=== PATIENT | female | born 1970 | race Caucasian/White ===

== ENCOUNTER 2018-01-11 15:18 | Observation (INO) | payer BC ==
[~2018-01-11] VITALS: Ht 165.1 cm; Wt 131.8 kg
--- NOTE | ~2018-01-11 | HP ---
PATIENT: KARLOS NOLASCO MEDICAL RECORD: [id number] ACCOUNT: [id number] LOCATION:[facility].E10- : 70 ADMISSION DATE: 01/11/18 HISTORY AND PHYSICAL EXAMINATION DATE OF ADMISSION: 01/11/2018 CHIEF COMPLAINT: Extreme dizziness. HISTORY OF PRESENT ILLNESS: The patient is a 47-year-old obese female, who presents complaining of extreme dizziness. The patient states that over the past 4-5 days, she has had increasing weakness. She has had a history of having some dependent edema. She had recently had her diuretics increased. The patient presents being tachycardic as well as hypotensive. It is felt the patient warrants admission. PAST MEDICAL HISTORY: Significant that she has had epilepsy. She has had a cholecystectomy. She has had morbid obesity, obstructive sleep apnea, anxiety. FAMILY HISTORY: Mother was killed in a MVA at 47 years of age. Sister committed suicide. Father at 67 of heart disease. MEDICATIONS: Include acetaminophen with codeine one p.o. q.6 hours p.r.n. pain, aspirin 81 mg once a day, Coenzyme Q10 100 mcg once a day, cyclobenzaprine 10 mg t.i.d., Divalproex 500 mg tablet, Lasix 40 mg daily, Ativan 0.5 p.r.n. q.4 hours, anxiety, losartan 50 mg once a day, recently placed on metolazone 2.5 mg once a day, Topamax 50 mg daily, KCl 20 mEq twice daily, venlafaxine ER 150 mg daily, vitamin C 500 mg once a day. ALLERGIES: THE PATIENT IS ALLERGIC TO BACTRIM WELL DOXYCYCLINE. HABITS: None. REVIEW OF SYSTEMS: GENERAL: She denies any headaches, seizure or syncope. She denies change in visual or auditory acuity. PULMONARY: She denies any shortness of breath. CARDIOVASCULAR: She had no chest pain, palpitation, PND, orthopnea. GASTROINTESTINAL: No chronic nausea, vomiting, melena or hematochezia. GENITOURINARY: No urgency, frequency, or dysuria. PHYSICAL EXAMINATION: VITAL SIGNS: In the Emergency Room, this patient's temperature was 97, her pulse 126, her respirations are 18, her blood pressure was 104/72, her pulse 97. HEENT: Head is normocephalic. No lesions. Ears: TMs clear. Eyes: Pupils equal, round, reactive to light. Her extraocular movements are intact. Her nasal cavity, oral cavity, and oropharynx clear. NECK: Supple. There is no adenopathy. HEART: Had a regular rate. LUNGS: Clear. ABDOMEN: Soft, bowel sounds are positive. EXTREMITIES: Lower extremities had no edema. LABORATORY DATA: White count is elevated at 15.9, hemoglobin 17.2, hematocrit 50.4, platelets are 267. She had a sodium 138, potassium 3, chloride 96, CO2 is HISTORY AND PHYSICAL [id number] KARLOS NOLASCO M 29.2, BUN 25, creatinine 1.9, glucose is 247, calcium is 10.2, alkaline phosphatase was elevated at 160. ProBNP was 143. Chest x-ray showed no cardiomegaly, no active infiltrates. The patient had an EKG showing sinus tachycardia, rate is 106. Cardiac enzymes unremarkable. ASSESSMENT: 1. Morbid obesity. 2. Acute renal insufficiency secondary to excessive diuresis. 3. Dependent edema. 4. Hypertension. 5. History of epilepsy. 6. Mild hepatocellular dysfunction. PLAN: The patient will be admitted. Her diuretics will be held. She will be given gentle IV hydration. Continue to evaluate. TRANSINT:[id number] Voice Confirmation ID: [id number] DOCUMENT ID: [id number] NORAH ALVARADO MD at 1725 CC: [id number] DICTATION DATE: 01/12/18 0736 NEW ACCOUNT INTERVIEWER: 01/12/18 0827 DIS IN 01/12/18 [id number] [place] [address]
--- NOTE | ~2018-01-11 | DS ---
PATIENT:KARLOS NOLASCO :70 MEDICAL RECORD: [id number] DISCHARGE SUMMARY ADMISSION DATE: 01/11/18 DISCHARGE DATE: 01/12/18 DATE OF ADMISSION: 01/11/2018. DATE OF DISCHARGE: 01/12/2018. CONDITION ON DISCHARGE: Improved. ADMITTING DIAGNOSES: Morbid obesity, acute renal insufficiency, dependent edema, hypertension, history of epilepsy, mild hepatocellular dysfunction. DISCHARGE DIAGNOSES: Weakness, acute renal failure, hyperkalemia, dehydration, morbid obesity, obstructive sleep apnea, hypertension, and tachycardia. HOSPITAL COURSE: This patient is a 47-year-old female who had presented to the Emergency Room complaining of extreme dizziness. She states over the past 4-5 days, she has had increasing weakness. She had had a history of having some dependent edema recently. She had had her diuretics increased. The patient presented with tachycardia as well as hypotension, felt the patient warranted admission. PHYSICAL EXAMINATION: VITAL SIGNS: In the Emergency Room, her temperature was 97, pulse was 126, respiration 18, blood pressure 104/72. HEENT: Unremarkable. NECK: Supple. There was no adenopathy. HEART: Had regular. LUNGS: Clear. LABORATORY DATA: White count was elevated at 15.9, hemoglobin 17.2, hematocrit 50.4, and platelets were 267. Sodium 138, potassium of 3, chloride was 97, CO2 was 29, BUN was 25, creatinine was 1.9, blood sugar was 247, alkaline phosphatase was elevated at 160. Chest x-ray showed no cardiomegaly, no active infiltrates. EKG showed sinus tachycardia, rate of 160. The patient was admitted. Her diuretics were held. She was given gentle IV hydration. The following day, her white count was down to 7.2, hemoglobin 14.3, hematocrit was 43, her platelets were 260. Sodium was 140, potassium 3.2, chloride 102, CO2 was 28.1, BUN was 28, creatinine was down to 1.1, blood sugar was 149. It was felt that the patient was stable and could be discharged home. DISCHARGE INSTRUCTIONS: The patient was to follow up with Dr. Pack in approximately 1 week. MEDICATIONS: Would be Keppra 1000 mg p.o. b.i.d., Lucero 60 mg once a day, Pepcid 20 mg p.o. every day, aspirin 81 mg once a day, vitamin C 1000 mg once a day, Bactroban ointment application b.i.d., KCl 40 mEq times 1. Her activities were ad kyler. She will also be on Effexor 150 mg daily, Topamax 200 mg p.o. b.i.d., 1 multivitamin a day. TRANSINT:[id number] Voice Confirmation ID: [id number] DOCUMENT ID: [id number] DISCHARGE SUMMARY REPORT [id number] KARLOS NOLASCO JAMES MD at 1414 CC: [id number] DICTATION DATE: 02/08/18 1352 GIS SOFTWARE DEVELOPER: 02/09/18 1051 DIS IN 01/12/18 [id number] [place] [address]
[~2018-01-11 15:18] MED LIST: ALLERGY INJ; ASPIRIN EC81 MG; ATIVAN0.5 MG; BACTROBAN 22 GM22 GM; CLARITIN 10 MG10 MG PO; CRANBERRY CONC OR; EFFEXOR XR150 MG PO; KEPPRA1000 MG PO; KLOR-CON M2020 MEQ PO; MAGNESIUM CITRATE OR; MELATONIN 3 MG1 TAB; MULTI-DAY VITAM1 TAB PO; NORCO 10/325 TA1 TA1 PO; PEPCID20 MG PO; TOPAMAX200 MG PO; VITAMIN C1000 MG PO
[2018-01-11 15:47] VITALS: Ht 165.1 cm; Wt 131.8 kg
[2018-01-11] MEDS ORDERED: FUROSEMIDE40 MG PO (15:50)
[2018-01-11 16:10] LABS: BASOPHILS 0.1 % (0-2); EOSINOPHILS 0.8 % (0-7); HEMATOCRIT 50.4 % (36.0-48.0); HEMOGLOBIN 17.2 g/dL (12-16); IMMATURE GRANULOCYTES 0.9 % (0-5); LYMPHOCYTES 24.3 % (15-50); MCH 31.7 pg (26.0-34.0); MCHC 34.1 g/dL (31.0-37.0); MCV 92.8 fL (80.0-100.0); MONOCYTES 10.4 % (2-11); NEUTROPHILS 63.5 % (40-80); PLATELET COUNT 267 10x3/uL (130-400); RBC 5.43 10x6/uL (4.00-5.40); RDW 14.5 % (11.5-14.5); WBC 15.9 10x3/uL (4.8-10.8)
[2018-01-11 16:27] LABS: ALBUMIN 3.8 g/dL (3.4-5.0); ANION GAP 15.8 mmol/L (8-16); BILIRUBIN - TOTAL 0.46 mg/dL (0.2-1.3); CALCIUM 10.2 mg/dL (8.5-10.1); CARBON DIOXIDE 29.2 mmol/L (21.0-32.0); CREATININE - SERUM 1.9 mg/dL (0.6-1.3); PROTEIN - SERUM 8.4 g/dL (6.4-8.2)
[2018-01-11 19:30] LABS: CKMB 0.6 U/L (0.0-3.6); CREATINE KINASE 46 UL (21-215); TROPONIN-I 0.019 ng/mL (0.000-0.060)
[2018-01-11 19:52] LABS: APPEARANCE HAZY (CLEAR); BACTERIA FEW /hpf (NONE SEEN); BILIRUBIN NEGATIVE (NEGATIVE); COLOR YELLOW (YELLOW); EPITHELIAL CELLS 0-5 /hpf (0-5); GLUCOSE NEGATIVE (NEGATIVE); KETONE NEGATIVE (NEGATIVE); NITRITE NEGATIVE (NEGATIVE); PROTEIN TRACE mg/dL (NEGATIVE); SPECIFIC GRAVITY 1.025 (1.005-1.020); UROBILINOGEN NORMAL (NORMAL); WHITE CELLS - URINE 0-5 /hpf (0-5)
[2018-01-11 19:53] LABS: AMORPHOUS SEDIMENT <1+ /lpf (NONE SEEN); HYALINE CAST RARE /lpf (NONE SEEN)
[2018-01-11 20:26] VITALS: BP 140/83
[2018-01-11 21:01] VITALS: BP 124/72
[2018-01-11 22:01] VITALS: BP 115/59
[2018-01-11 23:01] VITALS: BP 100/47
[2018-01-12] VITALS (8 sets, daily range): BP systolic 87–113; BP diastolic 47–55
[2018-01-12 04:31] LABS: BASOPHILS 0.1 % (0-2); HEMOGLOBIN 14.3 g/dL (12-16); IMMATURE GRANULOCYTES 0.4 % (0-5); MCH 30.8 pg (26.0-34.0); MCHC 33.3 g/dL (31.0-37.0); MCV 92.5 fL (80.0-100.0); MEAN PLATELET VOLUME 9.7 fL (7.4-10.4); MONOCYTES 8.6 % (2-11); NEUTROPHILS 47.9 % (40-80); RBC 4.65 10x6/uL (4.00-5.40); RDW 14.5 % (11.5-14.5)
[2018-01-12 04:36] LABS: WBC 7.2 10x3/uL (4.8-10.8)
[2018-01-12 04:37] LABS: PLATELET COUNT 260 10x3/uL (130-400)
[2018-01-12 04:42] LABS: ANION GAP 13.1 mmol/L (8-16); CALCIUM 8.9 mg/dL (8.5-10.1); CARBON DIOXIDE 28.1 mmol/L (21.0-32.0); MAGNESIUM - SERUM 2.2 mg/dL (1.8-2.4); POTASSIUM - SERUM 3.2 mmol/L (3.5-5.1)
[2018-01-12 04:44] LABS: CREATININE - SERUM 1.1 mg/dL (0.6-1.3)
== END 2018-01-12 09:10 | disposition home or self-care (01) ==
LOC: D.ER 15:18 → D.EDHOLD 21:02 → OBSVTIME 21:02 → D.EDHOLD 01-12 09:10
PROVIDERS: Family Medicine
DX: N17.9 Acute kidney failure, unspecified (principal); E87.6 Hypokalemia; E86.0 Dehydration; E66.01 Morbid (severe) obesity due to excess calories; F41.8 Other specified anxiety disorders; G47.33 Obstructive sleep apnea (adult) (pediatric); I10 Essential (primary) hypertension; K76.89 Other specified diseases of liver; R00.0 Tachycardia, unspecified; G40.409 Other generalized epilepsy and epileptic syndromes, not intractable, without status epilepticus

== ENCOUNTER → 2018-03-12 10:10 | Outpatient (CLI) | payer BC ==
[2018-01-11 15:47] VITALS: BMI 48.3
[~2018-03-12 10:10] MED LIST changes: +FUROSEMIDE40 MG PO
== END | disposition home or self-care (01) ==
LOC: D.US 10:10
DX: I10 Essential (primary) hypertension (principal); E87.6 Hypokalemia; R56.9 Unspecified convulsions; D64.9 Anemia, unspecified; Z68.43 Body mass index [BMI] 50.0-59.9, adult